=== PATIENT | male | born 1995 | race Caucasian/White ===

== ENCOUNTER 2021-02-05 09:41 | Emergency (ER) | payer OTHER, SELFPAY ==
[2021-02-05 09:54] VITALS: BP 150/82; PULSE 80; RESP 18; TEMP 37.3; O2SAT 100
--- NOTE | 2021-02-05 10:00 | ED.EYEPROB ---
HPI - Eye Problem General Chief complaint: Eye Problems Stated complaint: left eye swollen Time Seen by Provider: 02/05/21 10:30 Source: patient and RN notes reviewed Mode of arrival: ambulatory Limitations: no limitations History of Present Illness HPI Narrative: 25-year-old male presents with concern for left eye irritation, feels like he has an eyelash under his lid. He denies pain, drainage, light sensitivity, trauma, vision changes. He reports he does not wear contact lenses. Reports he has a condition that requires him to wear hard contact lens in one eye, however he cannot afford the lens so he has not worn it recently. He denies intervention. He denies upper respiratory symptoms such as runny nose, stuffy nose, sore throat, headache. MD chief complaint: other (eye irritation) Related Data Allergies Allergy/AdvReac Type Severity Reaction Status Date / Time amoxicillin Allergy Unknown Verified 08/28/15 13:09 clarithromycin Allergy Unknown Verified 07/02/15 13:57 Penicillins Allergy Unknown Verified 07/02/15 13:57 sulfamethoxazole Allergy Unknown Verified 07/02/15 13:57 trimethoprim Allergy Unknown Verified 07/02/15 13:57 Review of Systems Review of Systems: CONSTITUTIONAL: Denies malaise, chills, sweats, or fever. EYES: Denies visual changes, redness, or discharge. Reports left eye irritation ENT: Denies rhinorrhea, congestion, sinus pain, otalgia or sore throat. SKIN: Denies rash or itching. NEUROLOGIC: Denies headache. All systems reviewed & are unremarkable except as noted in HPI and below PMFSH Comments At time of signature, agree with nursing past medical, surgical, social and family history. There is no relevant family history pertinent to the presenting complaint Exam Narrative: GENERAL: Well-appearing, well-nourished, and in no acute distress. HEAD: Normocephalic, atraumatic. EYES: PERRLA, conjunctivae clear, sclera clear, and EOMI. No nystagmus. No foreign body, no corneal abrasion noted upon Mike lamp exam. See note ENT: Nares clear. Mucous membranes moist. NECK: Supple. CHEST: No respiratory distress. Speaks in full sentences. HEART: Regular rate and rhythm. SKIN: Warm, dry, no rash. NEURO: Alert and oriented x3. PSYCH: Normal mood and affect Course Course Emergency Course: Patient is aware of diagnosis, understands and agrees to treatment plan. Anticipatory guidance given. Patient agrees to follow-up as directed and is aware of reasons to seek care at the emergency department. Portions of this record may have been created with voice recognition software Vital Signs Vital signs: Reviewed. MDM - Eye Problem MDM Narrative Medical decision making narrative: Consideration of the following conditions may be warranted for the presenting problem, they are not final diagnoses: Bacterial conjunctivitis, allergic conjunctivitis, viral conjunctivitis, foreign body, blepharitis, chalazion, hordeolum, corneal abrasion, preseptal cellulitis, orbital cellulitis. No evidence of proptosis, ophthalmoplegia, vision loss, pain with eye movement. Exam findings show no acute concerns or changes; patient is non-toxic appearing and is in no distress. Patient is appropriate for outpatient treatment and follow-up. Critical Care Time Critical Care Time Critical Care Time: No Discharge Plan Discharge Clinical Impression: Irritation of left eye Patient Disposition: Home, Self-Care Condition: Stable Instructions: Eye Wash (Into the eye) Additional Instructions: Use cold washcloth to your eye for comfort, use eyewash as necessary Do not touch or rub your eye or use a fabric patch You may take Tylenol or ibuprofen for pain Follow-up with PCP or special procedure technologist if condition is not improving in 2-3days. Your blood pressure was elevated above 120/80 today at [facility]. This puts you above the threshold for follow up. Please schedule a follow up visit with your personal physician as soon as possib
== END 2021-02-05 10:45 | disposition home or self-care (01) ==
PROVIDERS: Emergency Provider Nurse Practitioner
DX: H57.89 Other specified disorders of eye and adnexa (principal)
CPT/HCPCS: 99212; A9270; G0463

== ENCOUNTER 2021-05-31 10:14 | Emergency (ER) | payer OTHER, SELFPAY ==
[2021-05-31 10:22] VITALS: BP 148/92; PULSE 96; RESP 20; TEMP 36.7; O2SAT 100
--- NOTE | 2021-05-31 10:39 | ED.URI ---
HPI - URI/Sore Throat General Chief Complaint: Upper Respiratory Infection Stated Complaint: sore throat sinus drainage Time Seen by Provider: 05/31/21 10:39 Source: patient, RN notes reviewed and old records reviewed Mode of arrival: ambulatory Limitations: no limitations History of Present Illness HPI Narrative: 26-year-old male presents to the [facility] with 4 days of nasal congestion, sore throat x1 day. Patient states it does not feel like Covid. Recovered from Covid February 2021. Denies fevers. No chest pain or shortness of breath. No abdominal pain, nausea, vomiting or diarrhea. MD elicited complaint: sore throat and nasal congestion Related Data Home Medications Medication Instructions Recorded Confirmed No Home Medications 05/31/21 05/31/21 Allergies Allergy/AdvReac Type Severity Reaction Status Date / Time amoxicillin Allergy Unknown Verified 08/28/15 13:09 clarithromycin Allergy Unknown Verified 07/02/15 13:57 Penicillins Allergy Unknown Verified 07/02/15 13:57 sulfamethoxazole Allergy Unknown Verified 07/02/15 13:57 trimethoprim Allergy Unknown Verified 07/02/15 13:57 Review of Systems Review of Systems: All systems reviewed & are unremarkable except as noted in HPI and below Constitutional: Constitutional: Reports no additional constitutional complaints, Denies chills and Denies fever(s) Eyes: Eyes: Reports no additional eye complaints ENT: Reports as per HPI, Reports nasal congestion and Reports sore throat Cardiovascular: Cardiovascular: Reports no additional cardiovascular complaints and Denies chest pain Respiratory: Respiratory: Reports no additional respiratory complaints, Denies cough and Denies dyspnea Gastrointestinal: Gastrointestinal: Reports no additional gastrointestinal complaints, Denies abdominal pain, Denies diarrhea, Denies nausea and Denies vomiting Musculoskeletal: Musculoskeletal: Reports no additional musculoskeletal complaints Integumentary/Breasts: Skin/Breast: Reports system reviewed and no additional complaints, except as docu Neurologic: Reports system reviewed and no additional complaints, except as documented Allergic/Immunologic: Allergic/Immunologic: Reports no additional allergic/immunologic complaints [facility] Past Medical History Medical History (Updated 05/31/21 @ 10:50 by Yasmeen Valle) No significant medical problems Surgical History Surgical History (Updated 05/31/21 @ 10:41 by Yasmeen Valle) No significant past surgical history Social History Social History (Updated 05/31/21 @ 10:41 by Yasmeen Valle) Living arrangements: with family Gender identity (if verbalized by the patient): Male Comments At the time of my signature, I reviewed and agree with the nursing past medical, surgical, social, and family history. There is no relevant family history pertinent to the patient complaint. Exam Const: General: no acute distress Nutritional Appearance: obese Orientation/consciousness: patient oriented x3 HENMT: Head: normal to inspection Ears: external ears normal, TM's normal bilaterally and EAC's normal General nose exam: Normal external nose present, Abnormal mucous membranes and turbinates present boggy; not erythematous and Nasal discharge present clear and mucoid; not purulent Mouth: Yes Normal oral and palatal mucosa present Throat: tonsils normal, uvula midline, postnasal drainage and no uvular edema Eyes: Conjunctivae: conjunctivae normal Pupils: Equal, round and reactive pupils present Neck: Neck: normal visual inspection, no lymphadenopathy and no meningeal signs Chest: Chest palpation & inspection: normal inspection of the chest Resp: Effort & Inspection: normal respiratory effort and no use of accessory muscles Auscultation: clear to auscultation bilaterally, no crackles, no rales, no rhonchi and no wheezes Cardio: Rate: regular rate Rhythm: regular rhythm Back/Spine/Pelvis: Back: no CVA tenderness Skin: General
== END 2021-05-31 10:50 | disposition home or self-care (01) ==
PROVIDERS: Emergency Provider Nurse Practitioner
DX: J06.9 Acute upper respiratory infection, unspecified (principal); J02.9 Acute pharyngitis, unspecified
CPT/HCPCS: 87081; 87880; 99213; G0463

== ENCOUNTER 2022-05-10 19:03 | Emergency (ER) | payer OTHER, SELFPAY ==
[2022-05-10 19:20] VITALS: BP 156/90; PULSE 103; RESP 16; TEMP 36.3; O2SAT 100
--- NOTE | 2022-05-10 20:39 | ED.EAR ---
HPI - Ear Problem General Chief complaint: Ear Stated complaint: Ear Problem Time Seen by Provider: 05/10/22 20:39 Source: patient Mode of arrival: ambulatory Limitations: no limitations History of Present Illness HPI Narrative: 27-year-old male presenting for complaint of right ear pressure and fullness for about 5 days. He endorses a history of wax buildup and has been attempting to remove the wax with Q-tips and hydrogen peroxide. He endorses today he noticed some yellow drainage and bloody discharge on the pillow. He currently denies pain, tinnitus, dizziness, nausea, vomiting, fevers or chills. He denies recent upper respiratory illness. MD Complaint: ear pain Related Data Allergies Allergy/AdvReac Type Severity Reaction Status Date / Time amoxicillin Allergy Unknown Unknown Verified 05/10/22 19:50 clarithromycin Allergy Unknown Unknown Verified 05/10/22 19:50 Penicillins Allergy Unknown Unknown Verified 05/10/22 19:50 sulfamethoxazole Allergy Unknown Unknown Verified 05/10/22 19:50 trimethoprim Allergy Unknown Unknown Verified 05/10/22 19:50 Review of Systems Review of Systems: CONSTITUTIONAL: Denies malaise, chills, or fever. EYES: Denies visual changes, redness, or discharge. ENT: Denies rhinorrhea, congestion, sinus pain, and sore throat. Reports ear pain CARDIOVASCULAR: Denies chest pain, palpitations, or edema. RESPIRATORY: Denies cough or dyspnea. GASTROINTESTINAL: Denies abdominal pain, nausea, vomiting, diarrhea SKIN: Denies rash or itching. MUSCULOSKELETAL: Denies myalgia. NEUROLOGIC: Denies headache. All systems reviewed & are unremarkable except as noted in HPI and below PMFSH Past Medical History Medical History No significant medical problems Surgical History Surgical History No significant past surgical history Social History Social History Gender identity (if verbalized by the patient): Male Comments At time of signature, agree with nursing past medical, surgical, social and family history. There is no relevant family history pertinent to the presenting complaint Exam Narrative: GENERAL: Well-appearing EYES: PERRLA, conjunctivae clear ENT: Nares clear. Mucous membranes moist. Left TM pearly rizzo with dull light reflex; Right canal red, TM bulging and irregular, brown discoloration, with purulent effusion; no tragal tenderness. Oropharynx not erythematous without lesions. CHEST: Clear to auscultation, breath sounds equal. HEART: Regular rate and rhythm. No murmur heard. SKIN: Warm, dry, no rash. NEURO: Alert and oriented x3. PSYCH: Normal mood and affect Course Course Emergency Course: Patient is aware of diagnosis, understands and agrees to treatment plan. Anticipatory guidance given. Patient agrees to follow-up as directed and is aware of reasons to seek care at the emergency department. Portions of this record may have been created with voice recognition software Level of Care: Express Care Visit Vital Signs Vital signs: Vital Signs Temperature 97.3 F L 05/10/22 19:20 Pulse Rate 103 H 05/10/22 19:20 Respiratory Rate 16 05/10/22 19:20 Blood Pressure 156/90 H 05/10/22 19:20 Pulse Oximetry 100 05/10/22 19:20 Oxygen Delivery Room Air 05/10/22 19:20 Temperature 97.3 F L 05/10/22 19:20 Pulse Rate 103 H 05/10/22 19:20 Respiratory Rate 16 05/10/22 19:20 Blood Pressure 156/90 H 05/10/22 19:20 Pulse Oximetry 100 05/10/22 19:20 Oxygen Delivery Room Air 05/10/22 19:20 Reviewed Medical Decision Making MDM Narrative Medical decision making narrative: Will treat for AOM and OE. Advised supportive measures and signs/symptoms to go to the ER. Patient is appropriate for outpatient treatment and follow-up. Differential Diagnosis Differential Diagnosis: Coronavirus, strep pharyngi
== END 2022-05-10 20:50 | disposition home or self-care (01) ==
PROVIDERS: Emergency Provider Nurse Practitioner Family
DX: H66.91 Otitis media, unspecified, right ear (principal); H60.91 Unspecified otitis externa, right ear
CPT/HCPCS: 99213; G0463